=== PATIENT | female | born 1955 | race Caucasian/White ===

== ENCOUNTER 2024-08-15 09:06 | Day surgery (SDC) | payer MEDICARE ==
[~2024-08-15] VITALS: Ht 160 cm; Wt 109.5 kg
[~2024-08-15 09:06] MED LIST: ALPR.5 PO; AMLO5 PO; Crestor40 MG PO; ELIQUIS5 M2 PO; FLUO10 PO; Lactated Ringer's 1,000 ML IV SCH; VALS80 PO
--- NOTE | 2024-08-15 10:07 | NUR ---
08/15/[address] MODI, SEE ANESTHESIA RECORDS.
[2024-08-15 10:20] VITALS: BP 154/83
--- NOTE | 2024-08-15 10:24 | NUR ---
History, Chart, Medications and Allergies reviewed before start of procedure. Pre-Op teaching done. Pt verbalizes understanding. Patient states colon prep results DARK YELLOW. Patient States Post-Procedure ride home has been arranged WITH , MICAELA.
[2024-08-15] MEDS ORDERED: propofoL 40 ML IV ONE (10:50)
[2024-08-15 11:25] VITALS: BP 127/72
[2024-08-15 11:30] VITALS: BP 118/75
--- NOTE | 2024-08-15 11:45 | NUR ---
DISCHARGE PT A&OX4/VSS/RA/DENIES PAIN, DENIES NAUSEA, DRESSED SELF, IV DC'D, DC INS PROVIDED, PT REP UNDERSTANDING THOSE INSTRUCTIONS/COPY PROVIDED, LEFT VIA WC WITH RN TO GO HOME WITH [employer], WITH ALL PERSONAL POSSESSIONS.
== END 2024-08-15 23:00 | disposition home or self-care (01) ==
LOC: ORSCMMR 09:06 → ORD 10:00 → ORSCMMR 10:00
PROVIDERS: Internal Medicine Gastroenterology
PROC: 0DBL8ZX Excision of Transverse Colon, Via Natural or Artificial Opening Endoscopic, Diagnostic (ICD-10-PCS; principal; 2024-08-15 10:00)
PROC: 0DBM8ZX Excision of Descending Colon, Via Natural or Artificial Opening Endoscopic, Diagnostic (ICD-10-PCS; principal; 2024-08-15 10:00)
PROC: 0DBN8ZX Excision of Sigmoid Colon, Via Natural or Artificial Opening Endoscopic, Diagnostic (ICD-10-PCS; principal; 2024-08-15 10:00)
DX: Z12.11 Encounter for screening for malignant neoplasm of colon (principal); D12.3 Benign neoplasm of transverse colon; D12.4 Benign neoplasm of descending colon; D12.5 Benign neoplasm of sigmoid colon; Z86.0100 Personal history of colon polyps, unspecified; Z86.718 Personal history of other venous thrombosis and embolism; Z86.711 Personal history of pulmonary embolism; E66.01 Morbid (severe) obesity due to excess calories; Z68.41 Body mass index [BMI] 40.0-44.9, adult; I10 Essential (primary) hypertension; E78.00 Pure hypercholesterolemia, unspecified; K21.9 Gastro-esophageal reflux disease without esophagitis; F41.9 Anxiety disorder, unspecified; Z79.01 Long term (current) use of anticoagulants; Z79.899 Other long term (current) drug therapy
CPT/HCPCS: 88305; J2704; J7120